=== PATIENT | male | born 1965 | race Caucasian/White ===

== ENCOUNTER 2020-05-03 14:25 | Emergency (ER) | payer OTHER ==
[~2020-05-03] VITALS: Ht 177.8 cm; Wt 81.6 kg
[2020-05-03 18:00] VITALS: BP 138/96
== END 2020-05-03 20:36 | disposition home or self-care (01) ==
LOC: ER 14:25
DX: U07.1 COVID-19 (principal)
CPT/HCPCS: 36415; 71045; 87426